=== PATIENT | female | born 1960 | race Caucasian/White ===

== ENCOUNTER 2018-08-01 16:50 | Emergency (ER) | payer MEDICARE, SELFPAY ==
[2018-08-01 16:52] VITALS: BP 121/81; PULSE 71; RESP 17; TEMP 37.1; O2SAT 92; BMI 20.3
--- NOTE | 2018-08-01 17:12 | ED.VISSUMM ---
- ER Visit Summary Date of Service: 08/01/18 Chief Complaint: Dysuria, flank pain History of Present Illness: The patient is a 58 F presenting with dysuria, flank pain. She states this has been ongoing for the past 2 weeks but worsened over the past 2 days. She has been taking Azo at home. She complains of dysuria and urinary frequency. She has bilateral lower back pain. Denies fever. She has nausea with no vomiting. Denies other complaints. Physical Examination: Vitals are stable. Patient is afebrile. Alert no acute distress. HEENT exam is unremarkable. Neck is supple. Lungs are clear and equal bilaterally. Heart is regular rate and rhythm. Abdomen is soft suprapubic tenderness with no rebound or guarding Back: Bilateral CVA tenderness Extremities are unremarkable. Skin is warm and dry. Remainder of exam is unremarkable. Emergency Department Course and Treatment: Patient given morphine, Zofran IV with improvement. CBC, chemistries unremarkable. Urinalysis shows positive nitrite, positive leukocyte, 0-5 white blood cells. Urine culture was sent. Due to her symptoms she is given a prescription for Macrobid and Zofran. She is advised to follow-up with her primary care physician. Advised return to ED if worsening complaints. Disposition: Discharge home Impression: UTI This note was generated with [employer] dictation software. It may contain incorrect words, spelling, and punctuation that were not noted in review of the chart prior to signing ED Disposition - Plan for ED Patient: Chief Complaint: Abd Pain Instructions: ED UTI Cystitis Female Prescriptions: Hydrocodone Bitart/Apap 5-325 [[place] 5MG-325MG] 1 tablet PO Q6H PRN PRN 3 Days #8 tablet PRN Reason: Pain Ondansetron [Zofran Odt] 4 mg PO Q8H PRN PRN #10 tablet PRN Reason: Nausea Nitrofurantoin Macrocrystals [Macrobid] 100 mg PO Q12 #14 capsule Referrals: Greyson Pardo MD [STAFF PHYSICIAN] - Oumar Pace MD [Primary Care Provider] -
[2018-08-01] MEDS: Morphine 4 MG/ML Syringe IV (17:23)
[2018-08-01] MEDS: Ondansetron 4 MG/2 ML Vial IV (17:23)
[2018-08-01 17:33] LABS: Bacteria 0 SEEN /hpf (None Seen); Mucous, Urine 0 SEEN /hpf (<or=2+); Red Blood Cells-Urine 0 SEEN /hpf (0-5)
[2018-08-01 17:36] LABS: Color, Urine Yellow (Yellow); Glucose, Dipstick Normal (Normal); Ketone-Dipstick Negative (Negative); Leukocyte Esterase-Dipstick 500 /ul (Negative); Nitrite-Dipstick Positive (Negative); Occult Blood-Urine Negative /ul (Negative); Protein-Dipstick Negative (Negative); Specific Gravity, Urine 1.005 (1.002-1.030); Urine Clarity Clear (Clear); Urine Urobilinogen 8 mg/dl (Normal)
[2018-08-01 17:36] LABS: Absolute Lymphocyte Count 3.22 X10^3/ul (0.83-4.51); Absolute Neutrophil Count 4.9 X10^3/uL (2.0-7.7); Basophil# 0.03 X10^3/uL; Basophil% 0.3 % (0-1); Eosinophil# 0.12 X10^3/uL; Eosinophils% 1.4 % (0-5); Hematocrit 40.7 % (37-47); Hemoglobin 13.2 g/dl (12.0-15.0); Lymphocyte # 3.22 X10^3/ul (4.0); Lymphocyte % 36.8 % (19-41); Mean Corp Hgb Conc 32.4 g/gl (32-36); Mean Corpuscular Hgb 32.6 pg (27.0-32.0); Mean Corpuscular Volume 100.5 fL (81-99); Mean Platelet Vol. 10.7 fl (6.2-12.0); Monocyte% 5.7 % (0-10); Neutrophil # 4.88 X10^3/uL (2.7-7.7); Neutrophil % 55.7 % (47-70); Platelet Count 265 K/mm3 (150-450); RBC Distribution Width CV 12.1 % (11.6-14.6); Red Blood Count 4.05 M/mm3 (4.2-5.4); White Blood Count 8.8 K/mm3 (4.4-11.0)
[2018-08-01 17:38] LABS: POSITIVE COUNT NO; POSITIVE DIFFERENTIAL NO; POSITIVE MORPHOLOGY NO
[2018-08-01 17:38] LABS: Urine Bilirubin Dipstick 3 mg/dL (Negative)
[2018-08-01 17:46] LABS: Squamous Epithelial Cells - UA 0-5 SEEN /hpf (5-10); White Blood Cells 0-5 SEEN /hpf (0-5)
[2018-08-01 17:50] LABS: Anion Gap 5 (5-15); BUN 11 mg/dL (7-18); BUN/Creat Ratio 16.7 RATIO (10-20); Calcium,Total 9.1 mg/dL (8.5-10.1); Chloride 108 mmol/L (98-107); Creatinine, Serum 0.66 mg/dL (0.55-1.02); EST Glomerular Filtration Rate 98 mL/min (>60); Est Glom Filt Rate - Afr Amer 118 mL/min (>60); Estimated Creatinine Clearance 85.44 ml/min; Glucose 85 mg/dL (74-106); Potassium 4.2 mmol/L (3.5-5.1); Sodium Level 140 mmol/L (136-145)
--- NOTE | 2018-08-01 18:09 | DCINST.ED_ITS ---
ED Disposition - Plan for ED Patient: Chief Complaint: Abd Pain Instructions: ED UTI Cystitis Female Prescriptions: Hydrocodone Bitart/Apap 5-325 [[place] 5MG-325MG] 1 tablet PO Q6H PRN PRN 3 Days #8 tablet PRN Reason: Pain Ondansetron [Zofran Odt] 4 mg PO Q8H PRN PRN #10 tablet PRN Reason: Nausea Nitrofurantoin Macrocrystals [Macrobid] 100 mg PO Q12 #14 capsule Referrals: Oumar Pace MD [Primary Care Provider] - Greyson Pardo MD [STAFF PHYSICIAN] -
[2018-08-01 18:14] VITALS: BP 126/75; PULSE 75; RESP 15; O2SAT 99
[2018-08-01] MEDS: Nitrofurantoin Macrocrystals 100 MG Capsule PO (18:16)
== END 2018-08-01 18:26 | disposition home or self-care (01) ==
PROVIDERS: Emergency Provider Emergency Medicine; Family Provider Internal Medicine; PCP Internal Medicine
DX: N39.0 Urinary tract infection, site not specified (principal)
CPT/HCPCS: 80048; 81001; 85025; 87077; 87086; 87088; 87186; 96374; 96375; 99284; J2405

== ENCOUNTER → 2018-08-12 18:12 | Outpatient (CLI) | payer MEDICARE, SELFPAY | PROVIDERS: Family Provider Internal Medicine; PCP Internal Medicine; Referring Provider Nurse Practitioner Adult Health; Visit Provider Nurse Practitioner Adult Health | DX: Z87.440 Personal history of urinary (tract) infections (principal); R82.90 Unspecified abnormal findings in urine | CPT/HCPCS: 87086; 87088 ==

== ENCOUNTER 2018-08-22 08:15 | Day surgery (SDC) | payer MEDICARE, SELFPAY ==
[2018-08-22] VITALS (8 sets, daily range): BP systolic 83–137; BP diastolic 54–116; PULSE 62–75; RESP 16–18; TEMP 36.1–36.8; O2SAT 94–98; BMI 21.7
[2018-08-22] MEDS: Cefazolin 2 GM in 0.9% Normal Saline 100 ML IV (09:59)
--- NOTE | 2018-08-22 10:00 | DCINST_ITS ---
Discharge Diet: Light diet - advance as tolerated Discharge Activity: Return to Normal Activity Allergies/Adverse Reactions: Allergies codeine Adverse Reaction (Verified 08/15/18 11:48) Vomiting STERIOD Allergy (Uncoded 08/15/18 11:48) Anaphylaxis Medications to take at Discharge Baclofen [Lioresal] 10 mg PO TID 01/09/17 Diazepam 5 mg PO TID 01/09/17 Propranolol HCl 10 mg PO BID 01/09/17 Magnesium 1,000 mg PO DAILY 07/08/17 Melatonin 5 mg PO QHS 07/08/17 Multivitamin [Daily Multiple Vitamin] 1 each PO DAILY 07/08/17 Zolpidem Tartrate [Ambien (Generic)] 5 mg PO QHS PRN PRN 07/08/17 Ciprofloxacin [Cipro] 500 mg PO BID #10 tablet 07/12/17 Pumpkin Seed Extract/Soy Germ [Azo Bladder Control Capsule] 300 mg PO 4X/DAY 08/15/18 Acetaminophen [Tylenol Extra Strength] 500 mg PO Q4H PRN PRN #20 tablet 08/22/18 Ibuprofen 600 mg PO Q6H PRN PRN #20 tablet 08/22/18 Solifenacin Succinate [Vesicare] 10 mg PO DAILY #30 tablet 08/22/18 The following prescriptions were given: Acetaminophen [Tylenol Extra Strength] 500 mg PO Q4H PRN PRN #20 tablet PRN Reason: Pain Ibuprofen 600 mg PO Q6H PRN PRN #20 tablet PRN Reason: Pain Solifenacin Succinate [Vesicare] 10 mg PO DAILY #30 tablet Primary Care Physician: Oumar Pace MD [Primary Care Provider] - Test Results: Test results from this visit will be discussed in further detail at your follow- up appointment, if applicable. Please Follow Up With: Greyson Parod MD When: in 2 weeks, please call to make an appointment.
--- NOTE | 2018-08-22 10:29 | OP.PCM_ITS ---
Report of Operation Date of Procedure: 08/22/18 Pre-Operative Diagnosis: Bladder pain and interstitial cystitis and bladder pressure Post-Operative Diagnosis: Same Surgery/Procedure Performed:: Cystoscopy hydrodistention of the bladder and instillation of the bladder IC cocktail medication Description of Surgical Findings:: Patient was taken back to the operating room at the smooth induction of general anesthesia she was placed in dorsolithotomy position the urethra vaginal area prepped and draped in usual sterile fashion examination she is a normal urethra bimanual exam demonstrates no palpable masses or abnormalities she has had a prior hysterectomy, no cystocele or rectocele, inside the bladder nice normal trigone, bladder nice and smooth no trabeculation tumors or masses within the bladder. I then did the first hydrodistention filled up her bladder up as much as possible for 3-1/2 minutes and drain the bladder measure the volume of 700 mL's in the digits the second hydrodistention filled the bladder up for 3-1/2 minutes the bag was taken about 80 cm above the patient, the second instillation she had 900 cc in the bladder fairly good volume. She did have petechial hemorrhages throughout the bladder after instillation consistent with IC minimal bleeding. We then instilled a cocktail of medications in her bladder for interstitial cystitis composed of lidocaine heparin DMSO. After the instillation patient's anesthetic was reversed taken back to PACU good condition she will hold the medication for at least 30-40 minutes and then after he urinates and go home. She is given prescription for Tylenol ibuprofen and Ves icare for her bladder she follow-up in a few weeks. Type of Anesthesia:: General - Admit VTE Documentation VTE Present on Admission: No VTE Mechan Device Prophylaxis: SCD's
[2018-08-22] MEDS: Ketorolac 15 MG/ML Vial IV (10:45)
--- NOTE | 2018-08-22 11:16 | SUR.PHASEI ---
PT WAS SPEAKING TO ME ON ARRIVAL TO PACU. SHE WAS ABLE TO TELL ME SHE HAD A HEADACHE AND THAT HER HIP HURT, WHICH HURT PRIOR. CONTINUED MONITORING PT WHEN SHE BEGAN TO ACT UNCOMFORTABLE AND RESTLESS. ASKED PT WHAT WAS BOTHERING HER BUT SHE WAS UNABLE TO GET THE WORDS OUT. I ASKED, IS SHE ANXIOUS, NAUSEOUS, HAVING TROUBLE BREATHING, CHEST PAIN - ALL TO WHICH SHE SHOOK HER HEAD NO. SHE WAS STILL UNABLE TO GET THE WORDS OUT AND WAS INCREASINGLY ANXIOUS LOOKING. I ASKED IS IT HER MS AND SHE NODDED YES. CALLED DR. GOFF WHO ORDERED OXYGEN AND SAID WOULD BE THERE SOON. PT GOT OUT WORD MEMO, SO WE CALLED FOR HER TO COME TO PACU. AT THIS POINT, SHE IS NOT ABLE TO SPEAK, LOOKING ANXIOUS AND RUBBING THE SIDE OF HER FACE. UPDATED DR. GOFF WHO TOLD US TO CALL THE STROKE TEAM AND THEY WERE CALLED. ONCE THE ARRIVED, HE SAID THAT THE PT WAS HAVING AN EXACERBATION OF MS AND THAT SHE HAS THESE EPISODES EVERY 4-5 WEEKS. HE SAYS SHE ACTS EXACTLY HOW SHE'S ACTING NOW FOR 5-30 MIN AND IT EVENTUALLY ENDS AND SHE SLEEPS FOR A COUPLE HOURS. HE SAYS NOTHING CAN BE DONE TO HELP THE EXACERBATION, AND THAT WE JUST HAVE TO WAIT IT OUT. STROKE TEAM ARRIVED AND HOSPITALISTS EVALUATED PT. WHILE DR. DE JESUS WAS EVALUATING, THE PT SEEMED TO BE SLOWLY GETTING BETTER. PER DR. DE JESUS'S RECOMMENDATION, THE PT WOULD STAY FOR FURTHER EVALUATION AND GET A CT SCAN TO RULE OUT A CVA. THE STATES THAT HE HAS BEEN THROUGH THESE EPISODES BEFORE, AND STAYING FOR AN EVALUATION WOULD BE A WASTE OF EVERYONE'S TIME. DR. DE JESUS STATES THAT IT IS THE AND PT DECISION, AND THE AGAIN STATES THAT HE THINKS IT WOULD BE BEST TO GO HOME. BEFORE D/C FROM PACU, PT WAS TALKING TO AND ABLE TO ANSWER MY QUESTIONS. PER SHELL, OKAY TO MEDICATE FOR HIP AND BACK SORENESS, AND OKAY TO D/C FROM PACU.
--- NOTE | 2018-08-22 12:15 | PCM.HOSP.N ---
Hospitalist Note Stroke alert was called while the patient was in recovery after cystoscopy for interstitial cystitis by Dr. Pardo. Stroke alert was called as the patient was lethargic, drowsy and perhaps left-sided facial numbness, speech problem. Patient was recovering from anesthesia and hard to keep her eyes open, mumbling incomprehensible sounds or words and left-sided facial numbness. Patient has a history of MS and she had multiple episode of emesis exacerbation after surgery. Her near the bedside and is very she origin MS exacerbation based on his past experience. Gradually patient is recovering from anesthesia and opens her eyes and speak a few words. I do not think it is a stroke concern but overall tried to do NIH stroke scale. It was difficult as the patient requires repeated stimulation to arouse answered correctly her month and age though took long time. Lower extremities are rigid, hypertonia and could not able to complete NIHSS completely because of altered mental status and not able to understand questions. Discussed with the neurologist Dr. Hayes about inability to do denies a stroke scale and we think it is not a stroke/TIA but MS exacerbation but not completely rule out 100% Patient has been refused for CT scan or MRI as it showed that it is MS exacerbation. He has been is well aware of consequences. A stroke alert canceled. Patient is in recovery room. Code Visit Inpatient E&M: 71800 Subs Hosp L2
== END 2018-08-22 13:00 | disposition home or self-care (01) ==
LOC: SDC 11:05 → AC 11:10
PROVIDERS: Family Provider Internal Medicine; PCP Internal Medicine; Referring Provider Urology; Visit Provider Urology
PROC: 0T7B7ZZ Dilation of Bladder, Via Natural or Artificial Opening (ICD-10-PCS; CPT 52260; principal; 2018-08-22 10:00)
DX: N30.10 Interstitial cystitis (chronic) without hematuria (principal); G35 Multiple sclerosis; F32.9 Major depressive disorder, single episode, unspecified; E78.00 Pure hypercholesterolemia, unspecified; M54.9 Dorsalgia, unspecified; G89.29 Other chronic pain; F41.9 Anxiety disorder, unspecified; F17.210 Nicotine dependence, cigarettes, uncomplicated; I34.1 Nonrheumatic mitral (valve) prolapse
CPT/HCPCS: 52260; J7120; J1212; J2405

== ENCOUNTER 2024-04-24 13:28 | Day surgery (SDC) | payer MEDICARE, SELFPAY ==
[2024-04-24] VITALS (13 sets, daily range): BP systolic 104–146; BP diastolic 42–82; PULSE 56–66; RESP 14–16; TEMP 36.2–36.6; O2SAT 92–97; BMI 22.2
[2024-04-24] MEDS: Lactated Ringers 1,000 ML 15 ML IV (14:19)
[2024-04-24 14:38] LABS: Bedside Glucose 113 mg/dL (74-106)
--- NOTE | 2024-04-24 14:38 | PCM.PRE.AN2 ---
ASA Classification* ASA Classification ASA Classification: 2 Assessment & Plan Anesthesia* Anesthesia Assessment Anesthesia Assessment: Discussed sedation and/or anesthesia options, risks, benefits, and alternatives with patient/parents/legal guardian/POA. Questions invited. The patient/parents/legal guardian/POA seems to understand and agrees to proceed with anesthesia plan. Reviewed the physical assessment, medical history, allergy history and patient home medications list prior to surgery/procedure/anesthetic and documented any changes. Performed airway and anesthesia risk assessments. Anesthesia Type Anesthesia Type: General History Source History Obtained from:: Patient and Chart Anesthesia Focused Assessment* Temperature: 97.9 F Pulse Rate: 59 Blood Pressure: 146/78 Respiratory Rate: 16 Pulse Ox: 95 Oxygen Delivery Method: Room Air Airway Assessment Mouth opens: >3 cm Mallampati Score: II Teeth Condition: Intact Neck Range of motion (ROM): Full ROM Pertinent Findings EKG Pertinent Findings:: January 09, 2017. Normal sinus rhythm. Nonspecific T wave abnormality. Focused Labs Anesthesia Preop lab: CBC WBC 8.8 K/mm3 (4.4-11.0) 08/01/18 17:26 RBC 4.05 M/mm3 (4.2-5.4) L 08/01/18 17:26 Hgb 13.2 g/dl (12.0-15.0) 08/01/18 17:26 Hct 40.7 % (37-47) 08/01/18 17:26 Plt Count 265 K/mm3 (150-450) 08/01/18 17:26 CHEMISTRY Potassium 4.2 mmol/L (3.5-5.1) 08/01/18 17:26 Sodium 140 mmol/L (136-145) 08/01/18 17:26 BUN 11 mg/dL (7-18) 08/01/18 17:26 Creatinine 0.66 mg/dL (0.55-1.02) 08/01/18 17:26 Glucose 85 mg/dL (74-106) 08/01/18 17:26 POC Glucose 78 mg/dL (70-110) 01/09/17 22:00 COAG PT 11.6 SECONDS (11.7-14.9) L 01/09/17 22:20 Pre-Assessment Diagnosis/Proposed Procedure Planned Operative Procedure(s): (B) Insertion, Pain Pump,Implantable Anesthesia History 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 When Was Last Pacemaker Check QUESTION #4 FULL TEXT: You/Your Family Experience fever (hyperthermia) with Anesthesia Last Oral Intake Last Oral intake: Last Oral Intake NPO since 00:00 04/24/24 14:04 Meds taken in AM with sips of Yes 04/24/24 14:04 water? Meds patient instructed to SEE MAR 04/24/24 14:04 take am of surgery PONV PONV - dental assistant teacher: PONV - dental assistant teacher Female Yes 04/17/24 14:57 HX of Motion Sickness No 04/17/24 14:57 HX of N/V After Surgery Yes 04/17/24 14:57 Non-Smoker Yes 04/17/24 14:57 Duration of Surgery greater Yes 04/17/24 14:57 than 60 minutes Number of Risk Factors 4 04/17/24 14:57 PONV Score Severe Risk 04/17/24 14:57 Height & Weight Height & Weight: Anesthesia: Height & Weight Height 5 ft 7 in 04/24/24 14:04 Weight: 64.41 kg 04/24/24 14:04 Body Mass Index (BMI) 22.2 04/24/24 14:04 Respiratory Assessment Respiratory Assessment - dental assistant teacher: Respiratory Tract Infection Hx - dental assistant teacher Hx Respiratory Tract Infection No 04/17/24 14:57 STOP Sleep Apnea STOP Sleep Apnea - dental assistant teacher: STOP Sleep Apnea - dental assistant teacher Hx Hypertension Yes 04/17/24 14:57 Hx Sleep Apnea No 04/17/24 14:57 CPAP No 08/22/18 10:35 BIPAP Do you snore loudly (louder No 04/17/24 14:57 than talking or can be heard Do you often feel tired/ No 04/17/24 14:57 fatigued/ sleepy during daytime? Has anyone observed you stop No 04/17/24 14:57 breathing during sleep? STOP Results Negative 04/17/24 14:57 QUESTION #5 FULL TEXT : Do you snore loudly (louder than talking or can be heard through closed doors)? 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 Specify any problems Hx of Preganancy in last 3 No 04/17/24 14:57 Months Nurse Filling Out Transfusion MGRIFFITH 04/17/24 14:57 & Questions: Date: 04/17/24 04/17/24 14:57 Time: 15:00 04/17/24 14:57 Patient unable to answer at this time (ie. confused, unrespo /Reproduction History /Reproductive History - dental assistant teacher: /Reproductive Hx- dental assistant teacher Hx Now No 04/17/24 14:57 Gestational Age (in weeks): EDC: Hx Hx Para Hx Section SAB Active Medications Active Medications: Current Medications Generic Name Dose Route Start Last Admin Trade Name Freq PRN Reason Stop Dose Admin Diphenhydramine HCl 12.5 - 25 mg 04/24/24 13:30 Diphenhydramine 50 Mg/Ml Syringe IV Q6H PRN PRN ITCHING Diphenhydramine HCl 12.5 - 25 mg 04/24/24 13:30 Diphenhydramine 12.5 Mg/5 Ml Udc PO Q6H PRN PRN ITCHING Cefazolin Sodium 2 gm/ Sodium 110 mls @ 150 mls/hr 04/24/24 15:00 Chloride IV 04/24/24 15:43 PREOP ONE Morphine Sulfate 100 mg/ 20 mls @ 0.008 mls/hr 04/24/24 13:30 Sodium Chloride 16 ml/ N/A INTRATH 08/06/24 17:29 X1 ONE As Directed Lactated Ringer's 1,000 mls @ 15 mls/hr 04/24/24 13:45 04/24/24 14:19 IV 15 mls/hr .Q48H NICOLE Administration PFSH Medical History Wears glasses High cholesterol OAB (overactive bladder) Walker as ambulation aid Uses wheelchair Ambulates with cane Multiple sclerosis PONV (postoperative nausea and vomiting) Former smoker History of edema History of stress test Hypertension Cardiology follow-up encounter Home Medications ?Medication ?Instructions ?Recorded ?Last Taken ?Type baclofen 10 mg tablet 10 mg PO TID 01/09/17 08/22/18 07:00 History diazepam 5 mg tablet 5 mg PO TID 01/09/17 Unknown History propranolol 20 mg tablet 10 mg PO BID heart 01/09/17 04/24/24 09:00 History magnesium 250 mg tablet 500 mg PO DAILY 07/08/17 Unknown History melatonin 5 mg tablet 5 mg PO QHS 07/08/17 Unknown History multivitamin (Daily Multiple 1 ea PO DAILY 07/08/17 Unknown History tablet) pumpkin seed extract-soy germ 300 300 mg PO 4X/DAY 08/15/18 Unknown History mg capsule (Azo Bladder Control) ibuprofen 600 mg tablet 600 mg PO Q6H PRN PRN Pain #20 tabs 08/22/18 Unknown Rx acyclovir 400 mg tablet 400 mg PO DAILY SHINGLES PREVENTION 04/17/24 Unknown History bumetanide 1 mg tablet 1 mg PO DAILY swelling 04/17/24 Unknown History nitrofurantoin 100 mg PO MOWEFR 04/17/24 Unknown History monohydrate/macrocrystals 100 mg capsule (Macrobid) ondansetron HCl 4 mg tablet 4 mg PO TID PRN PRN nausea and 04/17/24 Unknown History vomiting oxycodone 5 mg tablet 5 mg PO BID PRN pain 04/17/24 Unknown History oxycodone myristate 27 mg capsule 27 mg PO BID 04/17/24 04/23/24 22:00 History sprinkle extended release 12hr(DON'T CRUSH) (Xtampza ER) Allergy/AdvReac Type Severity Reaction Status Date / Time Corticosteroids Allergy Severe Anaphylaxis Verified 04/24/24 14:02 (Glucocorticoids) (steroids) Pnhzwsq-JBZ-BjM Reductase AdvReac Mild Other Verified 04/24/24 14:02 Inhibitor (Qscuplo-Ekq-Pal Reductase Inhibitor) codeine AdvReac Vomiting Verified 04/24/24 14:02 Surgical History History of tonsillectomy History of colonoscopy History of removal of cyst History of hysterectomy History of appendectomy Social History Smoking Status: Former smoker Review of Systems (Anesthesia) ROS Narrative System reviewed and no additional complaints, except as documented.
--- NOTE | 2024-04-24 15:00 | RAD_ITS ---
HISTORY: PAIN PUMP INSERT. TECHNIQUE: Lumbar Spine single spot image COMPARISON: None. FINDINGS: OSSEOUS STRUCTURES: Single spot image of the catheter/electrode over the spine. RAD/Spine 1 View Any Level IMPRESSION: Image guidance for a pain pump insertion. Electronically Signed: Mildred Corcoran MD at 9:05 EDT ,
[2024-04-24] MEDS: Cefazolin 2 GM in 0.9% Normal Saline (100mL Bag) 100 ML IV (15:41)
[2024-04-24] MEDS: HYDROMORPHONE IV (16:22)
[2024-04-24] MEDS: NORMAL SALINE IV (16:22)
[2024-04-24] MEDS: Bupiv/Epi 0.25% 30 ML Vial (16:45)
--- NOTE | 2024-04-24 17:13 | PCM.POST.ANE ---
Anesthesia: Postop Eval I Current Vital Signs Temperature: 97.6 F Pulse Rate: 60 Blood Pressure: 124/77 Respiratory Rate: 16 Pulse Ox: 97 Oxygen Delivery Method: Room Air Assessment Airway patent: No Spontaneous unlabored respirations: No Mental status: Awake and Calm nausea: No Vomiting: No Anesthesia Complication: No Fluid Hydration Crystalloid volume administer (ml): 500 Total IV fluid infused: 500 Progress Note Anesthesia document: Postop Eval 1 completed: Yes
--- NOTE | 2024-04-24 17:14 | POSTOPAN2_ITS ---
Anesthesia Postop Eval I Sum Postop Eval Completion status Anesthesia document: Postop Eval 1 completed: Yes Anesthesia Postop Eval I Summary Anesthesia Postop Eval I Summary: Anesthesia Postop Eval I: Assessment Summary Airway patent No 04/24/24 17:14 ARTISAN [email or web address].[email or web address] Spontaneous unlabored No 04/24/24 17:14 ARTISAN [email or web address].OT respirations Mental status Awake,Calm 04/24/24 17:14 ARTISAN [email or web address].MDOT nausea No 04/24/24 17:14 ARTISAN PLASTERER.MDOT Vomiting No 04/24/24 17:14 ARTISAN PLASTERER.MDOT Anesthesia Postop Eval I: Fluid Summary Crystalloid volume administer 500 04/24/24 17:14 ARTISAN PLASTERER.MDOT (ml) Colloids volume administered ( ml) Blood Product volume administered (ml) Total IV fluid infused 500 04/24/24 17:14 ARTISAN PLASTERER.CORNEL Anesthesia Postop Eval I: Summary Notes Anesthesia Complication No 04/24/24 17:14 ARTISAN [email or web address].OT Anesthesia Complication Comment: Post-operative progress note Anesthesia: Postop Eval II Evaluation Mental status: Awake and Calm Pain Level: 4 nausea: No Vomiting: No Complications Anesthesia Complication: No
--- NOTE | 2024-04-24 17:14 | PCM.POSTANE2 ---
Anesthesia Postop Eval I Sum Postop Eval Completion status Anesthesia document: Postop Eval 1 completed: Yes Anesthesia Postop Eval I Summary Anesthesia Postop Eval I Summary: Anesthesia Postop Eval I: Assessment Summary Airway patent No 04/24/24 17:14 FIELD ENUMERATOR.MDOT Spontaneous unlabored No 04/24/24 17:14 FIELD ENUMERATOR.OT respirations Mental status Awake,Calm 04/24/24 17:14 FIELD ENUMERATOR.MDOT nausea No 04/24/24 17:14 FIELD ENUMERATOR.MDOT Vomiting No 04/24/24 17:14 FIELD ENUMERATOR.MDOT Anesthesia Postop Eval I: Fluid Summary Crystalloid volume administer 500 04/24/24 17:14 FIELD ENUMERATOR.MDOT (ml) Colloids volume administered ( ml) Blood Product volume administered (ml) Total IV fluid infused 500 04/24/24 17:14 FIELD ENUMERATOR.CORNEL Anesthesia Postop Eval I: Summary Notes Anesthesia Complication No 04/24/24 17:14 FIELD ENUMERATOR.OT Anesthesia Complication Comment: Post-operative progress note Anesthesia: Postop Eval II Evaluation Mental status: Awake and Calm Pain Level: 4 nausea: No Vomiting: No Complications Anesthesia Complication: No
[2024-04-24] MEDS: oxyCODONE 5 MG Tablet 10 MG PO (18:42)
--- NOTE | 2024-04-24 19:25 | SUR.PHASEII ---
pt informed of antibiotic script to picking belt operator at [facility] in [place]. pt alert. dressed self. walked to wheelchair. gait steady.
== END 2024-04-24 20:00 | disposition home or self-care (01) ==
LOC: SDC 13:31 → AC 13:34
PROVIDERS: PCP Internal Medicine; Referring Provider Anesthesiology Pain Medicine; Visit Provider Anesthesiology Pain Medicine
PROC: (CPT 62350; principal; 2024-04-24 14:45)
DX: G35 Multiple sclerosis (principal); G89.4 Chronic pain syndrome; Z79.899 Other long term (current) drug therapy; Z99.3 Dependence on wheelchair; Z87.891 Personal history of nicotine dependence; M54.9 Dorsalgia, unspecified
CPT/HCPCS: 62350; 01991; 72020; 76000; 82962; J7120; J2274; J2405; J3490